=== PATIENT | male | born 1960 | race Caucasian/White ===

== ENCOUNTER → 2024-03-25 18:25 | Outpatient (REF) | payer BC, SELFPAY | LOC: MRI 3T 18:25 | PROVIDERS: ATTENDING PHYSICIAN Specialist; FAMILY PHYSICIAN Family Medicine | DX: R97.20 Elevated prostate specific antigen [PSA] (principal); Z12.5 Encounter for screening for malignant neoplasm of prostate | CPT/HCPCS: 72197; A9575 ==